=== PATIENT | female | born 2000 | race African-American/Black ===

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

== ENCOUNTER 2020-12-07 05:11 | Emergency (ER) | payer SELFPAY ==
[~2020-12-07] VITALS: Ht 167.6 cm; Wt 73.0 kg
[2020-12-07] MEDS ORDERED: ONDANSETRON 4MG ODT PO ONE (07:30)
[2020-12-07 08:14] VITALS: BP 106/82
== END 2020-12-07 08:15 | disposition home or self-care (01) ==
LOC: ER 05:11
DX: R11.0 Nausea (principal); G47.00 Insomnia, unspecified; F41.8 Other specified anxiety disorders; Z56.89 Other problems related to employment
CPT/HCPCS: 81025; 99283; Q0162